=== PATIENT | female | born 1980 | race Caucasian/White ===

== ENCOUNTER 2017-06-22 14:49 | Emergency (ER) | payer OTHER ==
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
--- NOTE | 2017-06-22 16:46 | RAD REPORT ---
EXAM DESCRIPTION: CT - Thoracic Spine W/o Cont - 06/22/2017 4:37 pm CLINICAL HISTORY: Trauma, radiculopathy. COMPARISON: None. TECHNIQUE: Axial CT imaging through the thoracic spine was performed with coronal and sagittal re-fo rmatted images. All CT scans are performed using dose optimization technique as appropriate and may include automated exposure control or mA/KV adjustment according to patient size. FINDINGS: Vertebral body heights and disc spaces are maintained. A compression fracture is not prese nt. No significant disc space narrowing. Thoracic spine alignment is within normal limits. No paraspinal masses or hematoma. Intervertebral disc detail is inherently limited on CT without gross findings of canal compromise. IMPRESSION: Negative study.
--- NOTE | 2017-06-22 16:48 | RAD REPORT ---
EXAM DESCRIPTION: CT - Spine Lumbar Wo Con - 06/22/2017 4:37 pm CLINICAL HISTORY: Trauma, radiculopathy. COMPARISON: None. TECHNIQUE: Axial noncontrast CT imaging of the lumbar spine was performed with coronal and sagittal re-formatted images. All CT scans are performed using dose optimization technique as appropriate and may include automated exposure control or mA/KV adjustment according to patient size. FINDINGS: No acute lumbar spine fracture seen. No aggressive marrow pattern or malalignment. Paraspinal tissues are normal in thickness. No paraspinal abscess or hematoma seen. Intervertebral disc disease assessment is inherently limited by CT. Within these limitations, no high -grade canal stenosis suspected. IMPRESSION: Negative examination. Consider MRI follow-up for assessment of disc disease if clinically desired.
--- NOTE | 2017-06-22 16:55 | RAD REPORT ---
EXAM DESCRIPTION: RAD - Shoulder Left 2 View - 06/22/2017 4:51 pm CLINICAL HISTORY: Trauma, left shoulder pain COMPARISON: None. FINDINGS: No acute fracture or dislocation is seen. Prominent bone island is seen in left humerus pr oximally. IMPRESSION: No acute findings seen.
--- NOTE | 2017-06-22 16:55 | RAD REPORT ---
EXAM DESCRIPTION: RAD - Chest Single View - 06/22/2017 4:45 pm CLINICAL HISTORY: Trauma, chest pain COMPARISON: 11/25/2015 FINDINGS: Portable technique limits examination quality. The lungs are grossly clear. The heart is normal in size. No displaced fractures. IMPRESSION: No acute intrathoracic process suspected.
[2017-06-22] MEDS ORDERED: CYCLOBENZAPRINE 10 MG TAB ONE (17:14)
[2017-06-22] MEDS ORDERED: HYDROCODONE/APAP 7.5/325 MG TAB ONE (17:14)
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
== END 2017-06-22 17:53 | disposition home or self-care (01) ==
LOC: ER 14:49
DX: M25.512 Pain in left shoulder (principal); M54.9 Dorsalgia, unspecified; V49.49XA Driver injured in collision with other motor vehicles in traffic accident, initial encounter; F41.9 Anxiety disorder, unspecified; F17.210 Nicotine dependence, cigarettes, uncomplicated
CPT/HCPCS: 70450; 71045; 72125; 72128; 72131; 99284

== ENCOUNTER 2017-06-24 08:35 | Day surgery (SDC) | payer OTHER ==
[2017-06-24] MEDS ORDERED: Ringers Lactate 1,000 ML IV ONE (09:44)
[2017-06-24] MEDS ORDERED: PROPOFOL 200 MG/20 ML VIAL IV ONE (11:43)
[2017-06-24] MEDS ORDERED: LIDOCAINE 1% MPF 5 ML VIAL ONE (11:43)
--- NOTE | 2017-06-24 11:53 | ENDO RPT ---
[address], [address] EGD PROCEDURE REPORT EXAM DATE: 06/24/2017 PATIENT NAME: Marianne Solano MR#: [id number] BIRTHDATE: 1980 ATTENDING: Aidan Richter DR STATUS: outpatient HEALTH CENTER MANAGER: Emilee Cee RN and Alicia Melendez INDICATIONS: The patient is a 37 yr old Female here for an EGD due to abdominal pain, dysphagia, and GERD PROCEDURE PERFORMED: EGD with biopsy for H. pylori MEDICATIONS: Per Anesthesia. TOPICAL ANESTHETIC: none CONSENT: The patient understands the risks and benefits of the procedure and understands that these risks include, but are not limited to: sedation, allergic reaction, infection, perforation and/or bleeding. Alternative means of evaluation and treatment include, among others: physical exam, x-rays, and/or surgical intervention. The patient elects to proceed with this endoscopic procedure. DESCRIPTION OF PROCEDURE: During intra-op preparation period all mechanical medical equipment was checked for proper function. Hand hygiene and appropriate measures for infection prevention was taken. Procedure, possible complications, and alternatives including but not limited to the possibility of bleeding, perforation, tear, infection, sepsis, need for surgery, need for blood transfusion, and anesthesia related complications were explained to the patient. After the risks, benefits and alternatives of the procedure were thoroughly explained, Informed consent was verified, confirmed and timeout was successfully executed by the treatment team. The patient was placed in the left lateral position. The patient was anesthetized with topical anesthesia. Through the anesthetized oropharyngeal area, the scope was passed without any difficulty. The [id number] ([id number]) endoscope was introduced through the mouth and advanced to the second portion of the duodenum. Retroflexed views revealed no abnormalities. The gastroscope was then slowly withdrawn and removed. Anastomosis was noted in the body of the stomach. A biopsy for H. pylori was taken. Moderate gastritis was found in the total stomach. A biopsy for H. pylori was taken. Duodenitis was found in the first portion of the duodenum. A biopsy for H. pylori was taken. LA Class A esophagitis was found in the lower esophagus. A biopsy of the GEJ was obtained to rule out Townsend's. Bile reflux was found in the total stomach. A biopsy for H. pylori was taken. ADVERSE EVENTS: There were no complications. IMPRESSIONS: 1. Anastomosis was noted in the body of the stomach 2. Moderate gastritis was found in the total stomach 3. Duodenitis was found in the first portion of the duodenum 4. LA Class A esophagitis was found in the lower esophagus RECOMMENDATIONS: 1. acid suppression therapy 2. anti-reflux regimen 3. await biopsy results 4. follow-up: office 2 week(s) 5. avoid NSAIDS 6. gastric emptying study 7. follow-up of helicobacter pylori status, treat if indicated REPEAT EXAM: Aidan Richter DR eSigned: Aidan Richter DR 06/24/2017 11:52 AM cc: CPT CODES: ICD9 CODES: PATIENT NAME: Marianne Solano MR#: [id number]
== END 2017-06-24 12:36 | disposition home health service (06) ==
LOC: OR 08:35
PROVIDERS: ATTEND Surgery
PROC: 0DB68ZX Excision of Stomach, Via Natural or Artificial Opening Endoscopic, Diagnostic (ICD-10-PCS; 2017-06-24)
PROC: 0DB38ZX Excision of Lower Esophagus, Via Natural or Artificial Opening Endoscopic, Diagnostic (ICD-10-PCS; 2017-06-24)
PROC: 0DB48ZX Excision of Esophagogastric Junction, Via Natural or Artificial Opening Endoscopic, Diagnostic (ICD-10-PCS; 2017-06-24)
PROC: 0DB98ZX Excision of Duodenum, Via Natural or Artificial Opening Endoscopic, Diagnostic (ICD-10-PCS; principal; 2017-06-24 11:00)
DX: K21.0 Gastro-esophageal reflux disease with esophagitis (principal); K29.50 Unspecified chronic gastritis without bleeding; K29.80 Duodenitis without bleeding; F98.8 Other specified behavioral and emotional disorders with onset usually occurring in childhood and adolescence; F17.210 Nicotine dependence, cigarettes, uncomplicated; Z80.1 Family history of malignant neoplasm of trachea, bronchus and lung; Z80.42 Family history of malignant neoplasm of prostate; Z80.0 Family history of malignant neoplasm of digestive organs; Z80.8 Family history of malignant neoplasm of other organs or systems; Z83.3 Family history of diabetes mellitus; Z82.49 Family history of ischemic heart disease and other diseases of the circulatory system
CPT/HCPCS: 88305; 88312